=== PATIENT | male | born 1960 | race Two or more races ===

== ENCOUNTER 2022-11-18 17:41 | Inpatient (IN) | payer MEDICARE, OTHER ==
[~2022-11-18] VITALS: Ht 162.6 cm; Wt 59.3 kg
[~2022-11-18 17:41] MED LIST: APIX2.5T PO; ASPI-543 PO; ATOR40TA52 PO; CALC667C PO; FURO1TAB31 PO; GABA-1250 PO; ISOS1TAB28 PO; MAGN241.4 PO; METO-289 PO; NIFE1TAB30 PO; PANT40T PO
[2022-11-18 19:04] LABS: Basophils # (auto) 0.1 10 ^3/uL (0-0.2); Basophils % (auto) 1.8 % (0.0-2.0); Eosinophils # (auto) 0 10 ^3/uL (0-0.8); Hematocrit 34.4 % (41.0-53.0); Hemoglobin 11.2 g/dL (13.5-17.5); Lymphocytes # (auto) 0.7 10 ^3/uL (0.4-5.4); Lymphocytes % (auto) 14.4 % (10.0-50.0); Mean Corpuscular Hemoglobin 33.6 pg (28.0-32.0); Mean Corpuscular Hgb Conc. 32.6 g/dL (32.0-36.0); Mean Corpuscular Volume 103.1 fL (80.0-100.0); Monocytes # (auto) 0.8 10 ^3/uL (0-1.3); Monocytes % (auto) 17.3 % (0.0-12.0); Neutrophils % (auto) 65.5 % (37.0-80.0); Nucleated Red Blood Cells % 0.5 %; Red Blood Cells 3.34 10^6/uL (4.5-5.90); White Blood Cell 4.5 10^3/uL (4.4-10.8)
[2022-11-18 19:26] LABS: Albumin 3.4 g/dL (3.4-5.0); Calcium 8.7 mg/dL (8.5-10.1); Potassium 4.6 mmol/L (3.5-5.1)
[2022-11-18 19:30] LABS: BUN/Creatinine Ratio 8.5 (10.0-20.0); Bilirubin, Total 0.8 mg/dL (0.2-1.0); Total Protein 7.8 g/dL (6.4-8.2)
[2022-11-19] VITALS (7 sets, daily range): BP systolic 122–171; BP diastolic 63–96
[2022-11-19] MEDS ORDERED: cefTRIAXone 1GM/50ML D5W 50 ML IV ONE (04:45)
[2022-11-19] MEDS ORDERED: ONDANSETRON HCL 4 MG/2 ML VIAL IV ONE (04:45)
[2022-11-19] MEDS ORDERED: LACTATED RINGER'S 1,000 ML IV ONE (04:45)
[2022-11-19] MEDS ORDERED: MORPHINE SULFATE 4 MG/ML SYR/VIAL IV ONE (04:45)
[2022-11-19] MEDS ORDERED: HEPARIN SODIUM (PORCINE) 5000 UNITS/ML 1ML VIAL IV ONE (04:45)
[2022-11-19] MEDS ORDERED: AZITHROMYCIN 500MG/ 250ML 250 ML IV ONE (04:45)
[2022-11-19] MEDS ORDERED: HYDROcodone-ACET 5/325MG TAB PO PRN (05:30)
[2022-11-19] MEDS ORDERED: NITROGLYCERIN 0.4 MG SL TAB SL PRN (05:30)
[2022-11-19] MEDS ORDERED: MORPHINE SULFATE INJ 2 MG/ml SYRG IV PRN ×2 (05:30→17:00)
[2022-11-19] MEDS ORDERED: ACETAMINOPHEN 325 MG TAB PO PRN (05:30)
[2022-11-19] MEDS ORDERED: ONDANSETRON HCL 4 MG/2 ML VIAL IV PRN (05:30)
[2022-11-19] MEDS ORDERED: FUROSEMIDE 40 MG TAB PO SCH (06:00)
[2022-11-19] MEDS ORDERED: HEPARIN SODIUM (PORCINE) 5000 UNITS/ML 1ML VIAL ONE ×2 (06:05→06:59)
[2022-11-19 06:29] LABS: INR 1.29 (0.9-1.15); Partial Thromboplastin Time 28.6 sec (24.6-33.4)
[2022-11-19] MEDS: HEPARIN DRIP/D5W 100UNITS/ML 250 ML IV SCH ×2 (07:14→23:55)
[2022-11-19 09:57] LABS: Urine Bacteria NONE SEEN /hpf (None Seen); Urine Blood Negative /uL (Negative); Urine WBC <1 /hpf (0 - 3)
[2022-11-19] MEDS ORDERED: NIFEdipine ER 30 MG TAB PO SCH ×2 (10:00→17:15)
[2022-11-19] MEDS: PANTOPRAZOLE 40 MG TAB PO SCH (10:02)
[2022-11-19] MEDS: ISOSORBIDE MONONITRATE ER 60 MG TAB PO SCH (10:03)
[2022-11-19] MEDS: METOPROLOL SUCCINATE XL 50 MG TAB PO SCH (10:04)
[2022-11-19 16:04] LABS: INR 1.44 (0.9-1.15); Partial Thromboplastin Time 53.9 sec (24.6-33.4)
[2022-11-19] MEDS ORDERED: LIDOCAINE 2%HCL (LOCAL ANESTH.) INJ 20ML MDV ONE (17:54)
[2022-11-19] MEDS ORDERED: fentaNYL CITRATE 100 MCG/2 ML VL ONE (17:54)
[2022-11-19] MEDS ORDERED: diphenhdrAMINE HCL 50 MG/1 ML VL ONE (17:54)
[2022-11-19] MEDS ORDERED: methylPREDNISolone SOD SUCC 125 MG/2 ML VL ONE (17:54)
[2022-11-19] MEDS ORDERED: MIDAZOLAM HCL 2MG/2ML 2ml VIAL (1mg/ml) ONE (17:54)
[2022-11-19] MEDS ORDERED: IODIXANOL 320MG/ML 100ML BTL IV ONE (17:55)
[2022-11-19] MEDS ORDERED: FAMOTIDINE (10MG/ML) 2ML VL IV ONE (17:55)
[2022-11-19] MEDS ORDERED: VERAPAMIL 2.5MG/ML INJ 2ML VIAL IV ONE (17:55)
[2022-11-19] MEDS ORDERED: ATORVASTATIN 20 MG TAB PO SCH (22:00)
[2022-11-19 22:52] LABS: INR 1.32 (0.9-1.15); Partial Thromboplastin Time 32.2 sec (24.6-33.4)
[2022-11-20] VITALS: BP 135/86
[2022-11-20 05:00] VITALS: BP 122/71
[2022-11-20 05:43] LABS: Basophils # (auto) 0 10 ^3/uL (0-0.2); Basophils % (auto) 0.1 % (0.0-2.0); Eosinophils # (auto) 0 10 ^3/uL (0-0.8); Monocytes # (auto) 0.1 10 ^3/uL (0-1.3); Neutrophils # (auto) 4.1 10 ^3/uL (1.6-8.6); Nucleated Red Blood Cells % 0.4 %
[2022-11-20 05:47] LABS: Hematocrit 33.1 % (41.0-53.0); Hemoglobin 11.1 g/dL (13.5-17.5); Lymphocytes # (auto) 0.2 10 ^3/uL (0.4-5.4); Lymphocytes % (auto) 5.5 % (10.0-50.0); Mean Corpuscular Hemoglobin 34.3 pg (28.0-32.0); Mean Corpuscular Hgb Conc. 33.5 g/dL (32.0-36.0); Mean Corpuscular Volume 102.5 fL (80.0-100.0); Monocytes % (auto) 1.2 % (0.0-12.0); Neutrophils % (auto) 93.2 % (37.0-80.0); Red Blood Cells 3.23 10^6/uL (4.5-5.90); Red Cell Distribution Width 16.8 % (11.8-14.3); White Blood Cell 4.4 10^3/uL (4.4-10.8)
[2022-11-20 05:50] LABS: Albumin 3.1 g/dL (3.4-5.0); Calcium 8.6 mg/dL (8.5-10.1); Potassium 5.2 mmol/L (3.5-5.1)
[2022-11-20 05:56] LABS: BUN/Creatinine Ratio 9.8 (10.0-20.0); Bilirubin, Total 1.2 mg/dL (0.2-1.0); Total Protein 7.4 g/dL (6.4-8.2)
[2022-11-20] MEDS ORDERED: SODIUM CHL 0.9% 1000 ML BAG XX ONE (07:00)
[2022-11-20] MEDS ORDERED: cefTRIAXone 1GM/50ML D5W 50 ML IV SCH (09:00)
[2022-11-20 09:29] VITALS: BP 122/70
[2022-11-20] MEDS ORDERED: AZITHROMYCIN 500MG/ 250ML 250 ML IV SCH (10:00)
[2022-11-20 10:48] LABS: INR 1.56 (0.9-1.15)
[2022-11-20 10:51] LABS: Partial Thromboplastin Time > 139.0 sec (24.6-33.4)
[2022-11-20 11:35] VITALS: BP 122/70
[2022-11-20 12:00] VITALS: BP 132/86
[2022-11-20] MEDS: ISOSORBIDE MONONITRATE ER 60 MG TAB PO SCH (13:14)
[2022-11-20] MEDS: PANTOPRAZOLE 40 MG TAB PO SCH (13:14)
[2022-11-20] MEDS: METOPROLOL SUCCINATE XL 50 MG TAB PO SCH (13:18)
== END 2022-11-20 15:30 | disposition home or self-care (01) | DRG 280 ==
LOC: ER 17:41 → TELE 11-19 05:32 → TELE-EAST 11-19 20:00
PROVIDERS: ADMIT Nurse Practitioner; ATTEND Internal Medicine Pulmonary Disease
PROC: 4A023N7 Measurement of Cardiac Sampling and Pressure, Left Heart, Percutaneous Approach (ICD-10-PCS; principal; 2022-11-19)
PROC: 0W993ZZ Drainage of Right Pleural Cavity, Percutaneous Approach (ICD-10-PCS; 2022-11-19)
PROC: B2111ZZ Fluoroscopy of Multiple Coronary Arteries using Low Osmolar Contrast (ICD-10-PCS; 2022-11-19)
PROC: B2151ZZ Fluoroscopy of Left Heart using Low Osmolar Contrast (ICD-10-PCS; 2022-11-19)
PROC: 5A1D70Z Performance of Urinary Filtration, Intermittent, Less than 6 Hours Per Day (ICD-10-PCS; 2022-11-20)
DX: I21.4 Non-ST elevation (NSTEMI) myocardial infarction (principal); I50.33 Acute on chronic diastolic (congestive) heart failure; N18.6 End stage renal disease; I13.2 Hypertensive heart and chronic kidney disease with heart failure and with stage 5 chronic kidney disease, or end stage renal disease; I48.92 Unspecified atrial flutter; E11.22 Type 2 diabetes mellitus with diabetic chronic kidney disease; D63.1 Anemia in chronic kidney disease; E87.8 Other disorders of electrolyte and fluid balance, not elsewhere classified; I25.10 Atherosclerotic heart disease of native coronary artery without angina pectoris; I27.20 Pulmonary hypertension, unspecified; F32.A Depression, unspecified; I48.91 Unspecified atrial fibrillation; K74.60 Unspecified cirrhosis of liver; Z82.49 Family history of ischemic heart disease and other diseases of the circulatory system; Z83.3 Family history of diabetes mellitus; Z95.5 Presence of coronary angioplasty implant and graft; Z99.2 Dependence on renal dialysis
CPT/HCPCS: 36415; 70450; 71045; 71046; 71250; 74176; 76705; 76942; 80053; 81001; 83615; 83690; 83880; 83986; 84484; 85025; 85610; 85730; 87070; 87205; 87426; 87804; 89051; 90935; 93005; 93306; 93458; 96365; 99152; 99153; 99291; C1887; G0378; J0696; J2250; J2405; J3490; Q9967

== ENCOUNTER 2022-11-23 21:42 | Inpatient (IN) | payer MEDICARE ==
[~2022-11-23] VITALS: Ht 165.1 cm; Wt 55.8 kg
[2022-11-23 22:14] LABS: Basophils # (auto) 0.1 10 ^3/uL (0-0.2); Eosinophils # (auto) 0.1 10 ^3/uL (0-0.8); Hemoglobin 12.4 g/dL (13.5-17.5); Monocytes # (auto) 0.6 10 ^3/uL (0-1.3); Red Cell Distribution Width 18.1 % (11.8-14.3)
[2022-11-23] MEDS ORDERED: DexAMETHasone SOD PHOS 10MG/1ML VIAL INJ IV ONE (22:15)
[2022-11-23] MEDS ORDERED: diphenhdrAMINE HCL 50 MG/1 ML VL IV ONE (22:15)
[2022-11-23 22:16] LABS: Basophils % (auto) 1.4 % (0.0-2.0); Eosinophils % (auto) 0.9 % (0.0-7.0); Hematocrit 37.9 % (41.0-53.0); Lymphocytes # (auto) 0.4 10 ^3/uL (0.4-5.4); Lymphocytes % (auto) 6.9 % (10.0-50.0); Mean Corpuscular Hemoglobin 34.4 pg (28.0-32.0); Mean Corpuscular Hgb Conc. 32.8 g/dL (32.0-36.0); Mean Corpuscular Volume 105.1 fL (80.0-100.0); Monocytes % (auto) 9.6 % (0.0-12.0); Neutrophils # (auto) 5.2 10 ^3/uL (1.6-8.6); Neutrophils % (auto) 81.2 % (37.0-80.0); Nucleated Red Blood Cells % 0.3 %; Red Blood Cells 3.61 10^6/uL (4.5-5.90); White Blood Cell 6.4 10^3/uL (4.4-10.8)
[2022-11-23 22:41] LABS: Albumin 2.8 g/dL (3.4-5.0); BUN/Creatinine Ratio 9.3 (10.0-20.0); Calcium 7.8 mg/dL (8.5-10.1); Magnesium 2.6 mg/dL (1.6-2.6)
[2022-11-23 22:44] LABS: Bilirubin, Total 0.6 mg/dL (0.2-1.0); Total Protein 6.9 g/dL (6.4-8.2)
[2022-11-23 22:51] LABS: Potassium 5.6 mmol/L (3.5-5.1)
[2022-11-23 22:55] LABS: INR 1.17 (0.9-1.15); Partial Thromboplastin Time 27.9 sec (24.6-33.4)
[2022-11-24] MEDS ORDERED: DOCUSATE SOD 100 MG CAP PO PRN
[2022-11-24] MEDS ORDERED: ACETAMINOPHEN 325 MG TAB PO PRN
[2022-11-24] MEDS ORDERED: FUROSEMIDE 40 MG/4 ML VIAL IV ONE
[2022-11-24] MEDS ORDERED: IOHEXOL 350 MG/ML 100ML IJ ONE (00:22)
[2022-11-24] MEDS ORDERED: CALCIUM GLUC 1,000mg/50ml-NS 50 ML IV ONE (00:30)
[2022-11-24] MEDS: HYDROcodone-ACET 5/325MG TAB PO PRN ×2 (00:39→18:30)
[2022-11-24] MEDS ORDERED: NITROGLYCERIN 0.4 MG SL TAB SL PRN (01:30)
[2022-11-24] MEDS: MORPHINE SULFATE INJ 2 MG/ml SYRG IV PRN ×2 (02:01→06:37)
[2022-11-24] MEDS ORDERED: HEPARIN DRIP/D5W 100UNITS/ML 250 ML IV SCH ×4 (02:45→21:30)
[2022-11-24] MEDS ORDERED: HEPARIN SODIUM (PORCINE) 5000 UNITS/ML 1ML VIAL IV ONE ×2 (02:45→03:00)
[2022-11-24 03:07] LABS: INR 1.22 (0.9-1.15); Partial Thromboplastin Time 28.9 sec (24.6-33.4)
[2022-11-24] MEDS: SODIUM CHLOR 0.9% PF (SALINE LOCK) 10ML VIAL/SYR IV SCH ×3 (05:34→21:53)
[2022-11-24] MEDS: ONDANSETRON HCL 4 MG/2 ML VIAL IV PRN (06:36)
[2022-11-24 07:33] LABS: Basophils # (auto) 0 10 ^3/uL (0-0.2); Eosinophils # (auto) 0 10 ^3/uL (0-0.8); Eosinophils % (auto) 0.1 % (0.0-7.0); Hemoglobin 12.5 g/dL (13.5-17.5); Lymphocytes # (auto) 0.3 10 ^3/uL (0.4-5.4); Monocytes # (auto) 0.1 10 ^3/uL (0-1.3); White Blood Cell 6.5 10^3/uL (4.4-10.8)
[2022-11-24 07:36] LABS: Basophils % (auto) 0.2 % (0.0-2.0); Hematocrit 38.4 % (41.0-53.0); Lymphocytes % (auto) 3.9 % (10.0-50.0); Mean Corpuscular Hgb Conc. 32.6 g/dL (32.0-36.0); Mean Corpuscular Volume 104.3 fL (80.0-100.0); Monocytes % (auto) 1.6 % (0.0-12.0); Neutrophils # (auto) 6.1 10 ^3/uL (1.6-8.6); Neutrophils % (auto) 94.2 % (37.0-80.0); Nucleated Red Blood Cells % 0.2 %; Red Blood Cells 3.68 10^6/uL (4.5-5.90); Red Cell Distribution Width 17.5 % (11.8-14.3)
[2022-11-24 07:52] LABS: Calcium 8.2 mg/dL (8.5-10.1)
[2022-11-24 07:55] LABS: Bilirubin, Total 0.8 mg/dL (0.2-1.0); Total Protein 7.1 g/dL (6.4-8.2)
[2022-11-24 08:00] LABS: Potassium 6.4 mmol/L (3.5-5.1)
[2022-11-24] MEDS ORDERED: SODIUM ZIRCONIUM CYCL 10 GM PAK PO ONE ×2 (08:00)
[2022-11-24] MEDS: SEVELAMER 800 MG TAB PO SCH ×3 (08:34→18:30)
[2022-11-24] MEDS ORDERED: SODIUM CHL 0.9% 1000 ML BAG XX ONE (08:45)
[2022-11-24] MEDS ORDERED: HEPARIN SODIUM (PORCINE) 5000 UNITS/ML 1ML VIAL SC SCH (10:00)
[2022-11-24] MEDS ORDERED: FAMOTIDINE (10MG/ML) 2ML VL IV SCH (10:00)
[2022-11-24] MEDS: DexAMETHasone SOD PHOS 10MG/1ML VIAL INJ IV SCH (10:33)
[2022-11-24] MEDS: ASPirin 81 mg TAB PO SCH (10:33)
[2022-11-24] MEDS: FUROSEMIDE 40 MG/4 ML VIAL IV SCH (10:35)
[2022-11-24] MEDS: B-COMPLEX W/ C & FOLIC ACID(NEPHROVITE TAB) PO SCH (10:35)
[2022-11-24 11:49] LABS: INR 1.21 (0.9-1.15)
[2022-11-24 11:53] LABS: Partial Thromboplastin Time 74.8 sec (24.6-33.4)
[2022-11-24 13:30] LABS: Alcohol, Urine < 3.0 mg/dL (0-10); Amphetamine Screen, Urine NEGATIVE (NEGATIVE); Barbiturate Scree,Urine NEGATIVE (NEGATIVE); Benzodiazephine Screen, Urine NEGATIVE (NEGATIVE); Cannabinoid Screen, Urine NEGATIVE (NEGATIVE); Cocaine Screen, Urine NEGATIVE (NEGATIVE); Opiate Scree,Urine NEGATIVE (NEGATIVE); Phencyclidine Screen, Urine NEGATIVE (NEGATIVE)
[2022-11-24] MEDS: SODIUM ZIRCONIUM CYCL 10 GM PAK PO SCH ×3 (14:46→22:15)
[2022-11-24 19:46] LABS: INR 1.24 (0.9-1.15)
[2022-11-24 19:48] LABS: Partial Thromboplastin Time > 139.0 sec (24.6-33.4)
[2022-11-24] MEDS ORDERED: EPOETIN ALFA-EPBX 4,000 UNIT/ML VIAL SC ONE (21:00)
[2022-11-24] MEDS ORDERED: EPOETIN ALFA-EPBX 4,000 UNIT/ML VIAL ONE (21:58)
[2022-11-24] MEDS: ATORVASTATIN 20 MG TAB PO SCH (22:15)
[2022-11-25 04:40] LABS: Basophils # (auto) 0 10 ^3/uL (0-0.2); Basophils % (auto) 0.1 % (0.0-2.0); Eosinophils # (auto) 0 10 ^3/uL (0-0.8); Eosinophils % (auto) 0.1 % (0.0-7.0); Hematocrit 39.2 % (41.0-53.0); Hemoglobin 11.9 g/dL (13.5-17.5); Lymphocytes # (auto) 0.3 10 ^3/uL (0.4-5.4); Lymphocytes % (auto) 5.4 % (10.0-50.0); Mean Corpuscular Hemoglobin 34.1 pg (28.0-32.0); Mean Corpuscular Hgb Conc. 30.3 g/dL (32.0-36.0); Mean Corpuscular Volume 112.3 fL (80.0-100.0); Monocytes # (auto) 0.3 10 ^3/uL (0-1.3); Neutrophils # (auto) 4.4 10 ^3/uL (1.6-8.6); Neutrophils % (auto) 88.4 % (37.0-80.0); Nucleated Red Blood Cells % 0.2 %; Red Blood Cells 3.49 10^6/uL (4.5-5.90); Red Cell Distribution Width 19.5 % (11.8-14.3)
[2022-11-25] MEDS ORDERED: HEPARIN SODIUM (PORCINE) 5000 UNITS/ML 1ML VIAL IV SCH (05:15)
[2022-11-25] MEDS: SODIUM CHLOR 0.9% PF (SALINE LOCK) 10ML VIAL/SYR IV SCH ×3 (05:33→21:17)
[2022-11-25 06:18] LABS: BUN/Creatinine Ratio 8.9 (10.0-20.0); Calcium 8.4 mg/dL (8.5-10.1)
[2022-11-25] MEDS ORDERED: HEPARIN SODIUM (PORCINE) 5000 UNITS/ML 1ML VIAL IV ONE (08:30)
[2022-11-25] MEDS: SEVELAMER 800 MG TAB PO SCH ×3 (08:55→18:24)
[2022-11-25] MEDS: B-COMPLEX W/ C & FOLIC ACID(NEPHROVITE TAB) PO SCH (10:32)
[2022-11-25] MEDS: ASPirin 81 mg TAB PO SCH (10:33)
[2022-11-25] MEDS: FUROSEMIDE 40 MG/4 ML VIAL IV SCH (10:33)
[2022-11-25] MEDS: DexAMETHasone SOD PHOS 10MG/1ML VIAL INJ IV SCH (10:33)
[2022-11-25 12:46] VITALS: BP 151/100
[2022-11-25] MEDS: HYDROcodone-ACET 5/325MG TAB PO PRN ×2 (12:46→23:38)
[2022-11-25] MEDS ORDERED: hydrALAZINE HCL 20 MG/ML VL IV ONE (16:30)
[2022-11-25 16:47] VITALS: BP 160/97
[2022-11-25] MEDS ORDERED: THIA100T10 PO (18:29)
[2022-11-25] MEDS ORDERED: FURO20TA3 PO (18:29)
[2022-11-25] MEDS ORDERED: CALC667C PO (18:29)
[2022-11-25] MEDS ORDERED: MIDO5TAB4 PO (18:29)
[2022-11-25] MEDS ORDERED: CAR3125T PO (18:29)
[2022-11-25] MEDS ORDERED: HYDR-4297 PO (18:29)
[2022-11-25] MEDS ORDERED: TRIA0.1P2 TOP (18:29)
[2022-11-25] MEDS ORDERED: METO-158 PO (18:29)
[2022-11-25] MEDS ORDERED: AMIO200T33 PO (18:29)
[2022-11-25] MEDS ORDERED: AMOX500C2 PO (18:29)
[2022-11-25] MEDS ORDERED: PANT40TA2 PO (18:29)
[2022-11-25] MEDS ORDERED: HYDR-4924 PO (18:29)
[2022-11-25] MEDS ORDERED: LACT10SO3 PO (18:29)
[2022-11-25 18:32] VITALS: BP 148/90
[2022-11-25] MEDS ORDERED: EPOETIN ALFA-EPBX 4,000 UNIT/ML VIAL SC ONE (21:00)
[2022-11-25] MEDS: ATORVASTATIN 20 MG TAB PO SCH (21:17)
[2022-11-25 22:00] VITALS: BP 153/86
[2022-11-25] MEDS: ONDANSETRON HCL 4 MG/2 ML VIAL IV PRN (23:39)
[2022-11-26 05:00] VITALS: BP 161/92
[2022-11-26] MEDS: SODIUM CHLOR 0.9% PF (SALINE LOCK) 10ML VIAL/SYR IV SCH (05:19)
[2022-11-26] MEDS: SEVELAMER 800 MG TAB PO SCH (08:25)
[2022-11-26 09:00] VITALS: BP 149/95
[2022-11-26] MEDS: ASPirin 81 mg TAB PO SCH (09:57)
[2022-11-26] MEDS: B-COMPLEX W/ C & FOLIC ACID(NEPHROVITE TAB) PO SCH (09:57)
[2022-11-26] MEDS: FUROSEMIDE 40 MG/4 ML VIAL IV SCH (09:57)
[2022-11-26] MEDS ORDERED: FAMOTIDINE (10MG/ML) 2ML VL IV SCH (10:00)
[2022-11-26] MEDS: DexAMETHasone SOD PHOS 10MG/1ML VIAL INJ IV SCH (10:23)
== END 2022-11-26 12:05 | disposition home or self-care (01) | DRG 280 ==
LOC: ER 21:42 → TELE 11-24 01:33 → TELE-WESTW 11-25 11:56
PROVIDERS: ADMIT Nurse Practitioner Family; ATTEND Internal Medicine
PROC: 5A1D70Z Performance of Urinary Filtration, Intermittent, Less than 6 Hours Per Day (ICD-10-PCS; principal; 2022-11-24)
DX: I21.4 Non-ST elevation (NSTEMI) myocardial infarction (principal); N18.6 End stage renal disease; R18.8 Other ascites; I13.2 Hypertensive heart and chronic kidney disease with heart failure and with stage 5 chronic kidney disease, or end stage renal disease; I42.8 Other cardiomyopathies; E87.5 Hyperkalemia; I50.9 Heart failure, unspecified; Z20.822 Contact with and (suspected) exposure to COVID-19; D53.9 Nutritional anemia, unspecified; K76.9 Liver disease, unspecified; D69.6 Thrombocytopenia, unspecified; I25.2 Old myocardial infarction; Z99.2 Dependence on renal dialysis; Z82.49 Family history of ischemic heart disease and other diseases of the circulatory system; Z83.3 Family history of diabetes mellitus; Z90.49 Acquired absence of other specified parts of digestive tract; Z91.018 Allergy to other foods
CPT/HCPCS: 36415; 71260; 74177; 80048; 80053; 80307; 82962; 83605; 83690; 83735; 83880; 84484; 85025; 85610; 85730; 87426; 90935; 93005; 93306; 96374; 96375; 99291; G0378; J1100; J2405; J3490

== ENCOUNTER 2022-11-29 22:30 | Inpatient (IN) | payer MEDICARE, MEDICAID ==
[~2022-11-29] VITALS: Ht 165.1 cm; Wt 65.9 kg
[~2022-11-29 22:30] MED LIST changes: +AMIO200T33 PO; +AMOX500C2 PO; +CAR3125T PO; +FURO20TA3 PO; +HYDR-4297 PO; +HYDR-4924 PO; +LACT10SO3 PO; +METO-158 PO; +MIDO5TAB4 PO; +PANT40TA2 PO; +THIA100T10 PO; +TRIA0.1P2 TOP
[2022-11-29 22:59] LABS: Eosinophils # (auto) 0.1 10 ^3/uL (0-0.8); Hemoglobin 11.5 g/dL (13.5-17.5); Mean Corpuscular Volume 104.5 fL (80.0-100.0); Nucleated Red Blood Cells % 0.1 %; Red Blood Cells 3.42 10^6/uL (4.5-5.90)
[2022-11-29 23:01] LABS: Basophils # (auto) 0 10 ^3/uL (0-0.2); Basophils % (auto) 0.3 % (0.0-2.0); Hematocrit 35.7 % (41.0-53.0); Lymphocytes # (auto) 0.5 10 ^3/uL (0.4-5.4); Lymphocytes % (auto) 6.1 % (10.0-50.0); Mean Corpuscular Hemoglobin 33.6 pg (28.0-32.0); Mean Corpuscular Hgb Conc. 32.2 g/dL (32.0-36.0); Monocytes % (auto) 12.7 % (0.0-12.0); Neutrophils # (auto) 6.3 10 ^3/uL (1.6-8.6); Neutrophils % (auto) 79.9 % (37.0-80.0); Red Cell Distribution Width 18.5 % (11.8-14.3); White Blood Cell 7.9 10^3/uL (4.4-10.8)
[2022-11-29 23:10] LABS: Albumin 3.3 g/dL (3.4-5.0); Calcium 8.1 mg/dL (8.5-10.1); Magnesium 3.1 mg/dL (1.6-2.6); Potassium 4.3 mmol/L (3.5-5.1)
[2022-11-29 23:14] LABS: BUN/Creatinine Ratio 11.1 (10.0-20.0); Bilirubin, Total 0.5 mg/dL (0.2-1.0); Total Protein 6.8 g/dL (6.4-8.2)
[2022-11-30] MEDS ORDERED: HEPARIN SODIUM (PORCINE) 5000 UNITS/ML 1ML VIAL IV ONE
[2022-11-30] MEDS ORDERED: HEPARIN DRIP/D5W 100UNITS/ML 250 ML IV SCH
[2022-11-30 00:50] LABS: INR 1.22 (0.9-1.15); Partial Thromboplastin Time 26.9 SEC (24.5-34.5)
[2022-11-30] MEDS ORDERED: ACETAMINOPHEN 325 MG TAB PO PRN (01:00)
[2022-11-30] MEDS ORDERED: DOCUSATE SOD 100 MG CAP PO PRN (01:00)
[2022-11-30] MEDS ORDERED: MORPHINE SULFATE INJ 2 MG/ml SYRG IV PRN (02:00)
[2022-11-30] MEDS ORDERED: NITROGLYCERIN 0.4 MG SL TAB SL PRN (02:00)
[2022-11-30] MEDS: SODIUM CHLOR 0.9% PF (SALINE LOCK) 10ML VIAL/SYR IV SCH ×3 (06:14→22:09)
[2022-11-30 08:41] LABS: INR 1.26 (0.9-1.15)
[2022-11-30 09:08] LABS: Partial Thromboplastin Time 85.5 SEC (24.5-34.5)
[2022-11-30] MEDS: CARVEDILOL 3.125 MG TAB PO SCH ×2 (10:00→22:15)
[2022-11-30 10:20] LABS: Cholesterol 110 mg/dL (< 200); HDL Cholesterol 56 mg/dL (40-59); LDL Cholesterol 33 mg/dL (< 100); Triglycerides 98 mg/dL (< 150)
[2022-11-30 10:40] LABS: Eosinophils # (auto) 0.1 10 ^3/uL (0-0.8); Hemoglobin 12.3 g/dL (13.5-17.5); Neutrophils # (auto) 6.8 10 ^3/uL (1.6-8.6); Nucleated Red Blood Cells % 0.1 %; White Blood Cell 8.5 10^3/uL (4.4-10.8)
[2022-11-30 10:41] LABS: Basophils # (auto) 0 10 ^3/uL (0-0.2); Basophils % (auto) 0.6 % (0.0-2.0); Eosinophils % (auto) 0.8 % (0.0-7.0); Lymphocytes # (auto) 0.5 10 ^3/uL (0.4-5.4); Mean Corpuscular Hemoglobin 33.8 pg (28.0-32.0); Mean Corpuscular Hgb Conc. 32.3 g/dL (32.0-36.0); Mean Corpuscular Volume 104.7 fL (80.0-100.0); Monocytes # (auto) 1.1 10 ^3/uL (0-1.3); Monocytes % (auto) 13.4 % (0.0-12.0); Neutrophils % (auto) 79.2 % (37.0-80.0); Red Blood Cells 3.64 10^6/uL (4.5-5.90); Red Cell Distribution Width 18.3 % (11.8-14.3)
[2022-11-30] MEDS: FUROSEMIDE 40 MG/4 ML VIAL IV SCH ×2 (11:10→22:17)
[2022-11-30] MEDS: ONDANSETRON HCL 4 MG/2 ML VIAL IV PRN ×2 (11:10→16:00)
[2022-11-30] MEDS: FAMOTIDINE (10MG/ML) 2ML VL IV SCH ×2 (11:10→22:16)
[2022-11-30] MEDS: PANTOPRAZOLE 40 MG/10 ML VIAL INJ IV SCH (11:10)
[2022-11-30] MEDS: ASPirin 81 mg TAB PO SCH (11:11)
[2022-11-30] MEDS: APIXABAN 2.5 MG TAB PO SCH ×2 (11:11→22:13)
[2022-11-30] MEDS ORDERED: IOHEXOL 350 MG/ML 100ML IJ ONE ×2 (14:48→17:00)
[2022-11-30] MEDS: metroNIDAZOLE 500MG/100ML 100 ML IV SCH ×2 (15:09→22:17)
[2022-11-30 19:00] VITALS: BP 142/91
[2022-11-30 20:00] VITALS: BP 125/66
[2022-11-30 22:00] VITALS: BP 148/92
[2022-11-30] MEDS ORDERED: ATORVASTATIN 20 MG TAB PO SCH (22:00)
[2022-11-30] MEDS: ATORVASTATIN 20 MG TAB PO SCH (22:14)
[2022-11-30] MEDS: HYDROcodone-ACET 5/325MG TAB PO PRN (22:16)
[2022-12-01 05:00] VITALS: BP 136/82
[2022-12-01] MEDS: SODIUM CHLOR 0.9% PF (SALINE LOCK) 10ML VIAL/SYR IV SCH ×3 (05:59→22:05)
[2022-12-01] MEDS: metroNIDAZOLE 500MG/100ML 100 ML IV SCH ×3 (06:00→22:03)
[2022-12-01] MEDS: MORPHINE SULFATE INJ 2 MG/ml SYRG IV PRN ×2 (06:41→21:59)
[2022-12-01] MEDS ORDERED: SODIUM CHL 0.9% 1000 ML BAG XX ONE (07:00)
[2022-12-01 08:50] VITALS: BP 137/83
[2022-12-01] MEDS: APIXABAN 2.5 MG TAB PO SCH ×2 (09:51→22:03)
[2022-12-01] MEDS: ASPirin 81 mg TAB PO SCH (09:51)
[2022-12-01] MEDS: cefTRIAXone 1GM/50ML D5W 50 ML IV SCH (09:51)
[2022-12-01] MEDS: FAMOTIDINE (10MG/ML) 2ML VL IV SCH (09:52)
[2022-12-01] MEDS: PANTOPRAZOLE 40 MG/10 ML VIAL INJ IV SCH (09:52)
[2022-12-01] MEDS: HYDROcodone-ACET 5/325MG TAB PO PRN ×2 (09:52→18:51)
[2022-12-01] MEDS: CARVEDILOL 3.125 MG TAB PO SCH ×2 (09:53→22:04)
[2022-12-01] MEDS: FUROSEMIDE 40 MG/4 ML VIAL IV SCH ×2 (09:53→22:03)
[2022-12-01 12:28] LABS: Calcium 8.8 mg/dL (8.5-10.1)
[2022-12-01 12:31] LABS: Albumin 2.7 g/dL (3.4-5.0); BUN/Creatinine Ratio 12.6 (10.0-20.0)
[2022-12-01 12:34] LABS: Potassium 5.8 mmol/L (3.5-5.1)
[2022-12-01 12:37] LABS: Bilirubin, Total 0.8 mg/dL (0.2-1.0); Total Protein 6.4 g/dL (6.4-8.2)
[2022-12-01 12:43] LABS: Basophils # (auto) 0 10 ^3/uL (0-0.2); Lymphocytes # (auto) 0.4 10 ^3/uL (0.4-5.4); Monocytes # (auto) 0.8 10 ^3/uL (0-1.3); Neutrophils % (auto) 79.1 % (37.0-80.0)
[2022-12-01] MEDS ORDERED: SODIUM ZIRCONIUM CYCL 10 GM PAK PO ONE (12:45)
[2022-12-01] MEDS ORDERED: ALBUTEROL SULF 2.5 MG/0.5ML(0.5%) NEB SOLN NEB ONE (12:45)
[2022-12-01 12:47] LABS: Basophils % (auto) 0.5 % (0.0-2.0); Eosinophils # (auto) 0 10 ^3/uL (0-0.8); Eosinophils % (auto) 0.8 % (0.0-7.0); Hematocrit 33.3 % (41.0-53.0); Hemoglobin 11.1 g/dL (13.5-17.5); Lymphocytes % (auto) 6.7 % (10.0-50.0); Mean Corpuscular Hemoglobin 34.2 pg (28.0-32.0); Mean Corpuscular Hgb Conc. 33.2 g/dL (32.0-36.0); Mean Corpuscular Volume 103.1 fL (80.0-100.0); Monocytes % (auto) 12.9 % (0.0-12.0); Neutrophils # (auto) 4.7 10 ^3/uL (1.6-8.6); Nucleated Red Blood Cells % 0.2 %; Red Blood Cells 3.23 10^6/uL (4.5-5.90); Red Cell Distribution Width 18.1 % (11.8-14.3)
[2022-12-01 13:00] VITALS: BP 138/85
[2022-12-01] MEDS ORDERED: ONDA-155 PO (15:27)
[2022-12-01 17:00] VITALS: BP 136/71
[2022-12-01] MEDS: ONDANSETRON HCL 4 MG/2 ML VIAL IV PRN (21:58)
[2022-12-01 22:00] VITALS: BP 142/84
[2022-12-01] MEDS: DOCUSATE SOD 100 MG CAP PO SCH (22:04)
[2022-12-01] MEDS: ATORVASTATIN 20 MG TAB PO SCH (22:04)
[2022-12-02 05:00] VITALS: BP 147/86
[2022-12-02] MEDS: metroNIDAZOLE 500MG/100ML 100 ML IV SCH ×3 (05:48→21:45)
[2022-12-02] MEDS: SODIUM CHLOR 0.9% PF (SALINE LOCK) 10ML VIAL/SYR IV SCH ×3 (05:49→21:47)
[2022-12-02 06:53] LABS: Urine Amorphous Crystal FEW /hpf (None Seen); Urine Bacteria FEW /hpf (None Seen); Urine Blood 1+ /uL (Negative); Urine Specific Gravity 1.018 (1.001-1.035); Urine WBC 5 /hpf (0 - 3)
[2022-12-02 09:00] VITALS: BP 144/93
[2022-12-02] MEDS: PANTOPRAZOLE 40 MG/10 ML VIAL INJ IV SCH (09:00)
[2022-12-02] MEDS: FUROSEMIDE 40 MG/4 ML VIAL IV SCH ×2 (09:00→21:47)
[2022-12-02] MEDS: ASPirin 81 mg TAB PO SCH (09:01)
[2022-12-02] MEDS: cefTRIAXone 1GM/50ML D5W 50 ML IV SCH (09:01)
[2022-12-02] MEDS: APIXABAN 2.5 MG TAB PO SCH ×2 (09:02→21:46)
[2022-12-02] MEDS: DOCUSATE SOD 100 MG CAP PO SCH ×2 (09:02→21:46)
[2022-12-02] MEDS: CARVEDILOL 3.125 MG TAB PO SCH ×2 (09:02→21:47)
[2022-12-02 10:25] LABS: Mean Corpuscular Hemoglobin 33.8 pg (28.0-32.0); Nucleated Red Blood Cells % 0.1 %; Red Cell Distribution Width 18.1 % (11.8-14.3)
[2022-12-02 10:26] LABS: Basophils # (auto) 0 10 ^3/uL (0-0.2); Basophils % (auto) 0.6 % (0.0-2.0); Eosinophils # (auto) 0.1 10 ^3/uL (0-0.8); Eosinophils % (auto) 0.8 % (0.0-7.0); Hematocrit 32.7 % (41.0-53.0); Hemoglobin 10.7 g/dL (13.5-17.5); Lymphocytes # (auto) 0.5 10 ^3/uL (0.4-5.4); Lymphocytes % (auto) 7.2 % (10.0-50.0); Mean Corpuscular Hgb Conc. 32.7 g/dL (32.0-36.0); Mean Corpuscular Volume 103.5 fL (80.0-100.0); Monocytes # (auto) 0.9 10 ^3/uL (0-1.3); Monocytes % (auto) 14.8 % (0.0-12.0); Neutrophils # (auto) 4.8 10 ^3/uL (1.6-8.6); Neutrophils % (auto) 76.6 % (37.0-80.0); Red Blood Cells 3.16 10^6/uL (4.5-5.90); White Blood Cell 6.3 10^3/uL (4.4-10.8)
[2022-12-02 10:56] LABS: BUN/Creatinine Ratio 12.4 (10.0-20.0)
[2022-12-02 11:01] LABS: Potassium 5.9 mmol/L (3.5-5.1)
[2022-12-02 13:00] VITALS: BP 129/78
[2022-12-02 16:53] VITALS: BP 155/91
[2022-12-02] MEDS: HYDROcodone-ACET 5/325MG TAB PO PRN (17:16)
[2022-12-02 20:51] LABS: Alcohol, Urine < 3.0 mg/dL (0-10); Amphetamine Screen, Urine NEGATIVE (NEGATIVE); Barbiturate Scree,Urine NEGATIVE (NEGATIVE); Benzodiazephine Screen, Urine NEGATIVE (NEGATIVE); Cannabinoid Screen, Urine NEGATIVE (NEGATIVE); Cocaine Screen, Urine NEGATIVE (NEGATIVE); Opiate Scree,Urine NEGATIVE (NEGATIVE); Phencyclidine Screen, Urine NEGATIVE (NEGATIVE)
[2022-12-02] MEDS: ATORVASTATIN 20 MG TAB PO SCH (21:46)
[2022-12-02 22:00] VITALS: BP 134/69
[2022-12-03] MEDS: HYDROcodone-ACET 5/325MG TAB PO PRN (03:03)
[2022-12-03 05:00] VITALS: BP 133/82
[2022-12-03] MEDS: metroNIDAZOLE 500MG/100ML 100 ML IV SCH ×3 (05:08→22:21)
[2022-12-03] MEDS: SODIUM CHLOR 0.9% PF (SALINE LOCK) 10ML VIAL/SYR IV SCH ×2 (06:17→14:08)
[2022-12-03 09:00] VITALS: BP 137/73
[2022-12-03] MEDS: CARVEDILOL 3.125 MG TAB PO SCH ×2 (10:33→22:14)
[2022-12-03 10:34] LABS: Hematocrit 34.1 % (41.0-53.0); Hemoglobin 10.9 g/dL (13.5-17.5); Mean Corpuscular Hemoglobin 34.1 pg (28.0-32.0); Mean Corpuscular Hgb Conc. 32.1 g/dL (32.0-36.0); Mean Corpuscular Volume 106.3 fL (80.0-100.0); Red Blood Cells 3.21 10^6/uL (4.5-5.90)
[2022-12-03] MEDS: DOCUSATE SOD 100 MG CAP PO SCH ×2 (10:34→22:15)
[2022-12-03] MEDS: FUROSEMIDE 40 MG/4 ML VIAL IV SCH ×2 (10:34→22:13)
[2022-12-03] MEDS: ASPirin 81 mg TAB PO SCH (10:34)
[2022-12-03] MEDS: PANTOPRAZOLE 40 MG/10 ML VIAL INJ IV SCH (10:34)
[2022-12-03] MEDS: APIXABAN 2.5 MG TAB PO SCH ×2 (10:34→22:15)
[2022-12-03] MEDS: cefTRIAXone 1GM/50ML D5W 50 ML IV SCH (10:35)
[2022-12-03 10:37] LABS: Band Neutrophils % (manual) 0; Basophils % (manual) 0 (0.0-2.0); Blast Cells 0; Metamyelocytes % 0; Myelocytes % 0; Promyelocytes % 0; Reactive Lymphocytes 0
[2022-12-03 10:55] LABS: Eosinophils % (manual) 1 (0-7); Lymphocytes % (manual) 5 (10.0-50.0); Monocytes % (manual) 9 (0-12)
[2022-12-03 11:42] LABS: Potassium 5.2 mmol/L (3.5-5.1)
[2022-12-03 11:52] LABS: BUN/Creatinine Ratio 9.9 (10.0-20.0); Calcium 8.4 mg/dL (8.5-10.1)
[2022-12-03] MEDS: ONDANSETRON HCL 4 MG/2 ML VIAL IV PRN ×2 (12:38→20:41)
[2022-12-03 13:00] VITALS: BP 139/75
[2022-12-03] MEDS ORDERED: SODIUM ZIRCONIUM CYCL 10 GM PAK PO ONE (14:45)
[2022-12-03 16:36] VITALS: BP 126/78
[2022-12-03 20:00] VITALS: BP 146/88
[2022-12-03] MEDS: MORPHINE SULFATE INJ 2 MG/ml SYRG IV PRN (20:42)
[2022-12-03 22:00] VITALS: BP 146/88
[2022-12-03] MEDS: ATORVASTATIN 20 MG TAB PO SCH (22:14)
[2022-12-04] MEDS: SODIUM CHLOR 0.9% PF (SALINE LOCK) 10ML VIAL/SYR IV SCH ×4 (01:45→22:00)
[2022-12-04] MEDS: HYDROcodone-ACET 5/325MG TAB PO PRN (02:22)
[2022-12-04 05:00] VITALS: BP 138/85
[2022-12-04] MEDS: metroNIDAZOLE 500MG/100ML 100 ML IV SCH ×3 (06:13→23:15)
[2022-12-04 06:21] LABS: Hematocrit 33.9 % (41.0-53.0); Red Cell Distribution Width 17.8 % (11.8-14.3); White Blood Cell 4.9 10^3/uL (4.4-10.8)
[2022-12-04 06:22] LABS: Mean Corpuscular Hemoglobin 34.1 pg (28.0-32.0); Mean Corpuscular Hgb Conc. 32.4 g/dL (32.0-36.0); Mean Corpuscular Volume 105.1 fL (80.0-100.0); Red Blood Cells 3.22 10^6/uL (4.5-5.90)
[2022-12-04 06:30] LABS: Basophils % (manual) 0 (0.0-2.0); Blast Cells 0; Eosinophils % (manual) 0 (0-7); Promyelocytes % 0; Reactive Lymphocytes 0
[2022-12-04] MEDS ORDERED: SODIUM CHL 0.9% 1000 ML BAG XX ONE (06:30)
[2022-12-04 06:38] LABS: Calcium 8.4 mg/dL (8.5-10.1); Magnesium 3.1 mg/dL (1.6-2.6)
[2022-12-04 06:42] LABS: Bilirubin, Total 0.6 mg/dL (0.2-1.0); Total Protein 6.9 g/dL (6.4-8.2)
[2022-12-04 06:45] LABS: BUN/Creatinine Ratio 10.4 (10.0-20.0)
[2022-12-04 07:41] LABS: Band Neutrophils % (manual) 4; Lymphocytes % (manual) 7 (10.0-50.0); Metamyelocytes % 2; Monocytes % (manual) 4 (0-12); Myelocytes % 1
[2022-12-04 09:00] VITALS: BP 151/83
[2022-12-04] MEDS: CARVEDILOL 3.125 MG TAB PO SCH ×2 (09:01→23:17)
[2022-12-04] MEDS: ASPirin 81 mg TAB PO SCH (09:01)
[2022-12-04] MEDS: DOCUSATE SOD 100 MG CAP PO SCH ×2 (09:01→23:16)
[2022-12-04] MEDS: ONDANSETRON HCL 4 MG/2 ML VIAL IV PRN ×3 (09:02→20:13)
[2022-12-04] MEDS: PANTOPRAZOLE 40 MG/10 ML VIAL INJ IV SCH (09:02)
[2022-12-04] MEDS: APIXABAN 2.5 MG TAB PO SCH ×2 (09:02→22:00)
[2022-12-04] MEDS: FUROSEMIDE 40 MG/4 ML VIAL IV SCH ×2 (09:02→23:22)
[2022-12-04] MEDS: cefTRIAXone 1GM/50ML D5W 50 ML IV SCH (09:03)
[2022-12-04] MEDS ORDERED: SODIUM ZIRCONIUM CYCL 10 GM PAK PO SCH (10:00)
[2022-12-04] MEDS: COLCHICINE 0.6 MG CAP PO SCH (10:15)
[2022-12-04] MEDS: RANOLAZINE ER 500 MG TAB PO SCH ×2 (10:15→22:00)
[2022-12-04 16:24] VITALS: BP 155/89
[2022-12-04 22:00] VITALS: BP 123/80
[2022-12-04] MEDS: ATORVASTATIN 20 MG TAB PO SCH (23:15)
[2022-12-05] MEDS: ONDANSETRON HCL 4 MG/2 ML VIAL IV PRN ×3 (04:02→14:50)
[2022-12-05 05:00] VITALS: BP 144/82
[2022-12-05 06:03] LABS: Basophils # (auto) 0 10 ^3/uL (0-0.2); Eosinophils # (auto) 0 10 ^3/uL (0-0.8); Hemoglobin 11.1 g/dL (13.5-17.5); Lymphocytes # (auto) 0.3 10 ^3/uL (0.4-5.4); Mean Corpuscular Hemoglobin 33.6 pg (28.0-32.0); Monocytes # (auto) 0.9 10 ^3/uL (0-1.3); Nucleated Red Blood Cells % 0.2 %
[2022-12-05 06:07] LABS: Basophils % (auto) 0.5 % (0.0-2.0); Eosinophils % (auto) 0.5 % (0.0-7.0); Hematocrit 34.2 % (41.0-53.0); Lymphocytes % (auto) 5.7 % (10.0-50.0); Mean Corpuscular Hgb Conc. 32.5 g/dL (32.0-36.0); Mean Corpuscular Volume 103.5 fL (80.0-100.0); Neutrophils # (auto) 4.6 10 ^3/uL (1.6-8.6); Neutrophils % (auto) 78.3 % (37.0-80.0); Red Cell Distribution Width 17.4 % (11.8-14.3); White Blood Cell 5.9 10^3/uL (4.4-10.8)
[2022-12-05] MEDS: SODIUM CHLOR 0.9% PF (SALINE LOCK) 10ML VIAL/SYR IV SCH ×2 (06:11→13:30)
[2022-12-05] MEDS: metroNIDAZOLE 500MG/100ML 100 ML IV SCH ×3 (06:11→14:49)
[2022-12-05 06:56] LABS: BUN/Creatinine Ratio 8.2 (10.0-20.0); Bilirubin, Total 0.8 mg/dL (0.2-1.0); Calcium 8.3 mg/dL (8.5-10.1); Magnesium 2.7 mg/dL (1.6-2.6); Potassium 4.5 mmol/L (3.5-5.1); Total Protein 6.7 g/dL (6.4-8.2)
[2022-12-05 09:00] VITALS: BP 139/85
[2022-12-05] MEDS: DOCUSATE SOD 100 MG CAP PO SCH (10:00)
[2022-12-05] MEDS: cefTRIAXone 1GM/50ML D5W 50 ML IV SCH (10:16)
[2022-12-05] MEDS: ASPirin 81 mg TAB PO SCH (10:22)
[2022-12-05] MEDS: CARVEDILOL 3.125 MG TAB PO SCH (10:23)
[2022-12-05] MEDS: COLCHICINE 0.6 MG CAP PO SCH (10:23)
[2022-12-05] MEDS: RANOLAZINE ER 500 MG TAB PO SCH (10:23)
[2022-12-05] MEDS: PANTOPRAZOLE 40 MG/10 ML VIAL INJ IV SCH (10:24)
[2022-12-05] MEDS: FUROSEMIDE 40 MG/4 ML VIAL IV SCH (10:24)
[2022-12-05 10:34] LABS: % Iron Saturation 20.3 % (20-55)
[2022-12-05] MEDS ORDERED: SODIUM ZIRCONIUM CYCL 10 GM PAK PO SCH (12:00)
[2022-12-05 13:48] LABS: INR 1.33 (0.9-1.15); Partial Thromboplastin Time 29.7 SEC (24.5-34.5)
[2022-12-05] MEDS ORDERED: HYDR-4902 PO (15:10)
[2022-12-05] MEDS ORDERED: ZOFR4T PO (15:10)
[2022-12-05] MEDS ORDERED: RANO500T3 PO (15:18)
[2022-12-08 08:53] LABS: Hepatitis B Surface Antibody Positive (Negative)
[2022-12-08 09:28] LABS: Hepatitis A Total Antibody Positive (Negative)
[2022-12-08 13:38] LABS: Hepatitis C Antibody Negative (Negative)
== END 2022-12-05 16:00 | disposition home or self-care (01) | DRG 280 ==
LOC: ER 22:30 → TELE 11-30 01:49 → TELE-WESTW 11-30 18:40
PROVIDERS: ADMIT Nurse Practitioner Family; ATTEND Internal Medicine Geriatric Medicine
PROC: 5A1D70Z Performance of Urinary Filtration, Intermittent, Less than 6 Hours Per Day (ICD-10-PCS; principal; 2022-12-01)
PROC: 5A1D70Z Performance of Urinary Filtration, Intermittent, Less than 6 Hours Per Day (ICD-10-PCS; 2022-12-04)
DX: I13.2 Hypertensive heart and chronic kidney disease with heart failure and with stage 5 chronic kidney disease, or end stage renal disease (principal); I50.23 Acute on chronic systolic (congestive) heart failure; I21.A1 Myocardial infarction type 2; N18.6 End stage renal disease; E87.20 Acidosis, unspecified; E44.1 Mild protein-calorie malnutrition; R18.8 Other ascites; I48.92 Unspecified atrial flutter; I25.10 Atherosclerotic heart disease of native coronary artery without angina pectoris; I48.91 Unspecified atrial fibrillation; E87.5 Hyperkalemia; D63.1 Anemia in chronic kidney disease; F32.A Depression, unspecified; R79.89 Other specified abnormal findings of blood chemistry; K74.60 Unspecified cirrhosis of liver; E78.5 Hyperlipidemia, unspecified; Z95.0 Presence of cardiac pacemaker; Z99.2 Dependence on renal dialysis; I25.2 Old myocardial infarction; Z68.22 Body mass index [BMI] 22.0-22.9, adult; Z79.01 Long term (current) use of anticoagulants; Z79.82 Long term (current) use of aspirin; Z82.49 Family history of ischemic heart disease and other diseases of the circulatory system; Z83.3 Family history of diabetes mellitus; Z95.5 Presence of coronary angioplasty implant and graft; Z91.041 Radiographic dye allergy status; Z90.49 Acquired absence of other specified parts of digestive tract
CPT/HCPCS: 36415; 71045; 74175; 74176; 76705; 80048; 80053; 80061; 80307; 81001; 82105; 82390; 82728; 83036; 83540; 83550; 83605; 83735; 83880; 84436; 84443; 84481; 84484; 85007; 85025; 85027; 85379; 85610; 85652; 85730; 86141; 86704; 86706; 86708; 86803; 87081; 87340; 90935; 93005; 94640; 96365; 96366; 96375; 96376; 99291; C9113; G0378; J0696; J1642; J2405; J3490

== ENCOUNTER 2022-12-12 10:28 | Inpatient (IN) | payer MEDICARE, MEDICAID ==
[~2022-12-12] VITALS: Ht 167.6 cm; Wt 62.0 kg
[~2022-12-12 10:28] MED LIST changes: -AMOX500C2 PO; -APIX2.5T PO; -ASPI-543 PO; -CAR3125T PO; -FURO20TA3 PO; +HYDR-4902 PO; -METO-158 PO; -MIDO5TAB4 PO; +ONDA-155 PO; -PANT40TA2 PO; +RANO500T3 PO; +ZOFR4T PO
[2022-12-12 10:52] LABS: Mean Corpuscular Hgb Conc. 32.4 g/dL (32.0-36.0); Neutrophils # (auto) 3.3 10 ^3/uL (1.6-8.6)
[2022-12-12 10:54] LABS: Basophils # (auto) 0.1 10 ^3/uL (0-0.2); Basophils % (auto) 1.1 % (0.0-2.0); Eosinophils # (auto) 0.1 10 ^3/uL (0-0.8); Eosinophils % (auto) 1.1 % (0.0-7.0); Hematocrit 35.5 % (41.0-53.0); Hemoglobin 11.5 g/dL (13.5-17.5); Mean Corpuscular Hemoglobin 33.6 pg (28.0-32.0); Mean Corpuscular Volume 103.8 fL (80.0-100.0); Neutrophils % (auto) 66.8 % (37.0-80.0); Nucleated Red Blood Cells % 0.2 %; Red Blood Cells 3.43 10^6/uL (4.5-5.90); Red Cell Distribution Width 19.6 % (11.8-14.3); White Blood Cell 4.9 10^3/uL (4.4-10.8)
[2022-12-12 11:05] LABS: Lymphocytes % (auto) 13.7 % (10.0-50.0); Monocytes # (auto) 0.6 10 ^3/uL (0-1.3); Monocytes % (auto) 17.3 % (0.0-12.0)
[2022-12-12 11:13] LABS: Albumin 2.8 g/dL (3.4-5.0); Calcium 8.6 mg/dL (8.5-10.1); Magnesium 2.6 mg/dL (1.6-2.6); Potassium 4.3 mmol/L (3.5-5.1)
[2022-12-12 11:18] LABS: BUN/Creatinine Ratio 6.9 (10.0-20.0); Bilirubin, Total 0.9 mg/dL (0.2-1.0); Total Protein 6.8 g/dL (6.4-8.2)
[2022-12-12] MEDS ORDERED: FUROSEMIDE 40 MG/4 ML VIAL IV ONE (13:00)
[2022-12-12] MEDS ORDERED: SODIUM CHLORIDE 0.9% 500 ML IV ONE (13:00)
[2022-12-12] MEDS ORDERED: NITROGLYCERIN 0.4 MG SL TAB SL PRN (17:45)
[2022-12-12] MEDS ORDERED: MORPHINE SULFATE 4 MG/ML SYR/VIAL IV PRN (17:45)
[2022-12-12] MEDS: CALCIUM ACETATE 667 MG CAP PO SCH (18:15)
[2022-12-12] MEDS: HYDROcodone-ACET 10/325MG TAB PO PRN (18:15)
[2022-12-12 19:59] LABS: INR 1.28 (0.9-1.15)
[2022-12-12] MEDS ORDERED: levoFLOXacin 250MG 50 ML IV SCH (20:00)
[2022-12-12] MEDS: PIPERACILLIN-TAZOB 3.375GM 100 ML IV SCH (20:23)
[2022-12-12] MEDS ORDERED: MAGNESIUM OXIDE 400 MG TAB PO SCH (22:00)
[2022-12-12] MEDS: NIFEDIPINE 60 MG PO SCH (22:00)
[2022-12-12] MEDS: GABAPENTIN 300 MG CAP PO SCH (22:24)
[2022-12-12] MEDS: ATORVASTATIN 20 MG TAB PO SCH (22:24)
[2022-12-12] MEDS: hydrALAZINE HCL 25 MG TAB PO SCH (22:25)
[2022-12-12] MEDS: AMIODARONE HCL 200 MG TAB PO SCH (22:25)
[2022-12-12] MEDS: FUROSEMIDE 40 MG TAB PO SCH (22:25)
[2022-12-12] MEDS: RANOLAZINE ER 500 MG TAB PO SCH (22:25)
[2022-12-12] MEDS: LACTULOSE 20Gm/30ML SOLN PO SCH (22:26)
[2022-12-13] MEDS: HYDROcodone-ACET 10/325MG TAB PO PRN ×3 (03:55→17:44)
[2022-12-13] MEDS: PIPERACILLIN-TAZOB 3.375GM 100 ML IV SCH ×3 (03:55→22:51)
[2022-12-13 05:53] LABS: Basophils # (auto) 0 10 ^3/uL (0-0.2); Eosinophils # (auto) 0.1 10 ^3/uL (0-0.8); Eosinophils % (auto) 1.4 % (0.0-7.0); Hemoglobin 11.8 g/dL (13.5-17.5); Lymphocytes # (auto) 0.7 10 ^3/uL (0.4-5.4); Lymphocytes % (auto) 13.7 % (10.0-50.0); Neutrophils # (auto) 3.2 10 ^3/uL (1.6-8.6)
[2022-12-13 05:56] LABS: Basophils % (auto) 0.9 % (0.0-2.0); Hematocrit 36.1 % (41.0-53.0); Mean Corpuscular Hgb Conc. 32.7 g/dL (32.0-36.0); Mean Corpuscular Volume 103.8 fL (80.0-100.0); Neutrophils % (auto) 63.1 % (37.0-80.0); Nucleated Red Blood Cells % 0.3 %; Red Blood Cells 3.48 10^6/uL (4.5-5.90); Red Cell Distribution Width 18.5 % (11.8-14.3)
[2022-12-13 06:11] LABS: Potassium 4.5 mmol/L (3.5-5.1)
[2022-12-13 06:20] LABS: Calcium 8.8 mg/dL (8.5-10.1)
[2022-12-13 06:23] LABS: Bilirubin, Total 1.2 mg/dL (0.2-1.0); Monocytes % (auto) 20.9 % (0.0-12.0); Total Protein 6.7 g/dL (6.4-8.2)
[2022-12-13] MEDS ORDERED: SODIUM CHL 0.9% 1000 ML BAG XX ONE (07:00)
[2022-12-13] MEDS: hydrALAZINE HCL 25 MG TAB PO SCH ×3 (07:02→22:55)
[2022-12-13] MEDS: CALCIUM ACETATE 667 MG CAP PO SCH ×3 (09:00→17:44)
[2022-12-13] MEDS: AMIODARONE HCL 200 MG TAB PO SCH ×2 (10:45→22:56)
[2022-12-13] MEDS: ONDANSETRON HCL 4 MG/2 ML VIAL IV PRN ×2 (10:46→17:43)
[2022-12-13] MEDS: PANTOPRAZOLE 40 MG TAB PO SCH (10:46)
[2022-12-13] MEDS: THIAMINE HCL 100 MG TAB PO SCH (10:46)
[2022-12-13] MEDS: RANOLAZINE ER 500 MG TAB PO SCH ×2 (10:46→22:54)
[2022-12-13] MEDS: ISOSORBIDE MONONITRATE ER 60 MG TAB PO SCH (10:46)
[2022-12-13] MEDS: METOPROLOL SUCCINATE XL 50 MG TAB PO SCH (10:46)
[2022-12-13] MEDS: NIFEDIPINE 60 MG PO SCH ×2 (10:47→23:03)
[2022-12-13] MEDS: FUROSEMIDE 40 MG TAB PO SCH ×2 (10:47→22:57)
[2022-12-13] MEDS: DOCUSATE SOD 100 MG CAP PO SCH (10:58)
[2022-12-13 17:00] VITALS: BP 116/68
[2022-12-13 20:00] VITALS: BP 134/78
[2022-12-13] MEDS ORDERED: EPOETIN ALFA-EPBX 4,000 UNIT/ML VIAL SC ONE (21:00)
[2022-12-13 22:00] VITALS: BP 136/51
[2022-12-13] MEDS: GABAPENTIN 300 MG CAP PO SCH (22:54)
[2022-12-13] MEDS: ATORVASTATIN 20 MG TAB PO SCH (22:57)
[2022-12-13] MEDS: LACTULOSE 20Gm/30ML SOLN PO SCH (22:58)
[2022-12-14 05:00] VITALS: BP 107/67
[2022-12-14] MEDS: hydrALAZINE HCL 25 MG TAB PO SCH ×3 (06:21→22:21)
[2022-12-14] MEDS ORDERED: SODIUM CHL 0.9% 1000 ML BAG XX ONE (07:00)
[2022-12-14] MEDS: CALCIUM ACETATE 667 MG CAP PO SCH ×3 (07:52→17:06)
[2022-12-14] MEDS: PIPERACILLIN-TAZOB 3.375GM 100 ML IV SCH ×2 (07:52→22:20)
[2022-12-14 09:00] VITALS: BP 101/83
[2022-12-14] MEDS: PANTOPRAZOLE 40 MG TAB PO SCH (09:46)
[2022-12-14] MEDS: DOCUSATE SOD 100 MG CAP PO SCH (09:46)
[2022-12-14] MEDS: METOPROLOL SUCCINATE XL 50 MG TAB PO SCH (09:46)
[2022-12-14] MEDS: AMIODARONE HCL 200 MG TAB PO SCH ×2 (09:46→22:21)
[2022-12-14] MEDS: THIAMINE HCL 100 MG TAB PO SCH (09:46)
[2022-12-14] MEDS: ISOSORBIDE MONONITRATE ER 60 MG TAB PO SCH (10:31)
[2022-12-14] MEDS: NIFEDIPINE 60 MG PO SCH ×2 (10:31→22:00)
[2022-12-14] MEDS: RANOLAZINE ER 500 MG TAB PO SCH ×2 (10:32→22:21)
[2022-12-14] MEDS: FUROSEMIDE 40 MG TAB PO SCH ×2 (10:32→22:21)
[2022-12-14 13:00] VITALS: BP 121/74
[2022-12-14] MEDS: ONDANSETRON HCL 4 MG/2 ML VIAL IV PRN (16:45)
[2022-12-14 17:00] VITALS: BP 133/68
[2022-12-14 22:00] VITALS: BP 142/72
[2022-12-14] MEDS: LACTULOSE 20Gm/30ML SOLN PO SCH (22:20)
[2022-12-14] MEDS: GABAPENTIN 300 MG CAP PO SCH (22:21)
[2022-12-14] MEDS: ATORVASTATIN 20 MG TAB PO SCH (22:21)
[2022-12-15 05:00] VITALS: BP 144/68
[2022-12-15] MEDS: hydrALAZINE HCL 25 MG TAB PO SCH ×2 (05:48→14:00)
[2022-12-15 06:03] LABS: Hematocrit 35.1 % (41.0-53.0); Hemoglobin 11.5 g/dL (13.5-17.5); Mean Corpuscular Hemoglobin 34.2 pg (28.0-32.0); Mean Corpuscular Hgb Conc. 32.9 g/dL (32.0-36.0); Mean Corpuscular Volume 103.8 fL (80.0-100.0); Red Blood Cells 3.38 10^6/uL (4.5-5.90); Red Cell Distribution Width 19.9 % (11.8-14.3); White Blood Cell 3.4 10^3/uL (4.4-10.8)
[2022-12-15 06:16] LABS: Basophils % (manual) 0 (0.0-2.0); Blast Cells 0; Promyelocytes % 0; Reactive Lymphocytes 0
[2022-12-15 06:22] LABS: BUN/Creatinine Ratio 5.1 (10.0-20.0); Potassium 4.4 mmol/L (3.5-5.1)
[2022-12-15 07:40] LABS: Band Neutrophils % (manual) 1; Eosinophils % (manual) 1 (0-7); Lymphocytes % (manual) 11 (10.0-50.0); Metamyelocytes % 3; Monocytes % (manual) 15 (0-12); Myelocytes % 1
[2022-12-15] MEDS: PIPERACILLIN-TAZOB 3.375GM 100 ML IV SCH (08:03)
[2022-12-15] MEDS: CALCIUM ACETATE 667 MG CAP PO SCH ×2 (08:04→12:00)
[2022-12-15] MEDS: ONDANSETRON HCL 4 MG/2 ML VIAL IV PRN (08:20)
[2022-12-15 09:00] VITALS: BP 109/58
[2022-12-15] MEDS: NIFEDIPINE 60 MG PO SCH (10:00)
[2022-12-15] MEDS: ISOSORBIDE MONONITRATE ER 60 MG TAB PO SCH (10:28)
[2022-12-15] MEDS: FUROSEMIDE 40 MG TAB PO SCH (10:29)
[2022-12-15] MEDS: DOCUSATE SOD 100 MG CAP PO SCH (10:29)
[2022-12-15] MEDS: AMIODARONE HCL 200 MG TAB PO SCH (10:29)
[2022-12-15] MEDS: RANOLAZINE ER 500 MG TAB PO SCH (10:29)
[2022-12-15] MEDS: THIAMINE HCL 100 MG TAB PO SCH (10:29)
[2022-12-15] MEDS: PANTOPRAZOLE 40 MG TAB PO SCH (10:29)
[2022-12-15] MEDS: METOPROLOL SUCCINATE XL 50 MG TAB PO SCH (10:30)
[2022-12-15 13:00] VITALS: BP_SYST 109; BP_SYST 117; BP_DIAS 58; BP_DIAS 75
== END 2022-12-15 14:06 | disposition home or self-care (01) | DRG 280 ==
LOC: EDBD 10:28 → ER 10:28 → TELE 17:44 → TELE-CENTR 12-13 15:06
PROVIDERS: ADMIT Nurse Practitioner Family; ATTEND Internal Medicine Geriatric Medicine
PROC: 5A1D70Z Performance of Urinary Filtration, Intermittent, Less than 6 Hours Per Day (ICD-10-PCS; principal; 2022-12-13)
PROC: 5A1D70Z Performance of Urinary Filtration, Intermittent, Less than 6 Hours Per Day (ICD-10-PCS; 2022-12-14)
DX: I13.2 Hypertensive heart and chronic kidney disease with heart failure and with stage 5 chronic kidney disease, or end stage renal disease (principal); I50.23 Acute on chronic systolic (congestive) heart failure; I21.A1 Myocardial infarction type 2; J15.9 Unspecified bacterial pneumonia; N18.6 End stage renal disease; E87.1 Hypo-osmolality and hyponatremia; E44.1 Mild protein-calorie malnutrition; R18.8 Other ascites; G89.29 Other chronic pain; E78.00 Pure hypercholesterolemia, unspecified; I25.10 Atherosclerotic heart disease of native coronary artery without angina pectoris; I42.8 Other cardiomyopathies; K74.60 Unspecified cirrhosis of liver; I49.5 Sick sinus syndrome; D69.6 Thrombocytopenia, unspecified; D63.1 Anemia in chronic kidney disease; Z99.2 Dependence on renal dialysis; Z95.810 Presence of automatic (implantable) cardiac defibrillator; Z95.5 Presence of coronary angioplasty implant and graft; Z68.22 Body mass index [BMI] 22.0-22.9, adult; Z91.041 Radiographic dye allergy status; I25.2 Old myocardial infarction; Z82.49 Family history of ischemic heart disease and other diseases of the circulatory system; Z83.3 Family history of diabetes mellitus
CPT/HCPCS: 36415; 71045; 76705; 80048; 80053; 83735; 84484; 85007; 85025; 85027; 85610; 87081; 90935; 93005; 96361; 96374; G0378; J2405; J2543